=== PATIENT | female | born 1950 | race Caucasian/White ===

== ENCOUNTER → 2016-10-15 | Outpatient (CLI) | payer MEDICARE ==
--- NOTE | 2016-10-19 09:06 | MM ---
Reason for exam: screening (asymptomatic). Last mammogram was performed 1 year ago. History: Patient is postmenopausal and is nulliparous. Took estrogen for 5 years beginning at age 46. Took progesterone for 5 years beginning at age 46. Physical Findings: A clinical breast exam by your physician is recommended on an annual basis and results should be correlated with mammographic findings. MG 3D Screening Mammo W/Cad Bilateral CC and MLO view(s) were taken. Prior study comparison: October 09, 2015, bilateral MG 3d screening mammo w/cad. The breast tissue is heterogeneously dense. This may lower the sensitivity of mammography. Focal asymmetry in the left upper outer quadrant left MLO view, stable. No significant changes when compared with prior studies. ASSESSMENT: Benign, BI-RAD 2 RECOMMENDATION: Routine screening mammogram of both breasts in 1 year.
== END | disposition home or self-care (01) ==
LOC: RADMAMWWP 11:20
PROVIDERS: ATTEND Internal Medicine
DX: Z12.31 Encounter for screening mammogram for malignant neoplasm of breast (principal)
CPT/HCPCS: 77063; G0202

== ENCOUNTER → 2017-12-08 | Outpatient (CLI) | payer MEDICARE ==
--- NOTE | 2017-12-09 15:36 | MM ---
Reason for exam: screening (asymptomatic). Last mammogram was performed 1 year and 2 months ago. History: Patient is postmenopausal and is nulliparous. Took estrogen for 5 years beginning at age 46. Took progesterone for 5 years beginning at age 46. Physical Findings: A clinical breast exam by your physician is recommended on an annual basis and results should be correlated with mammographic findings. MG 3D Screening Mammo W/Cad Bilateral CC and MLO view(s) were taken. Prior study comparison: October 15, 2016, bilateral MG 3d screening mammo w/cad. October 09, 2015, bilateral MG 3d screening mammo w/cad. The breast tissue is heterogeneously dense. This may lower the sensitivity of mammography. Finding: There are typically benign dystrophic, round calcifications in both breasts. There is no discrete abnormality. ASSESSMENT: Benign, BI-RAD 2 RECOMMENDATION: Routine screening mammogram of both breasts in 1 year.
== END | disposition home or self-care (01) ==
LOC: RADMAMWWP 09:12
PROVIDERS: ATTEND Internal Medicine
DX: Z12.31 Encounter for screening mammogram for malignant neoplasm of breast (principal)
CPT/HCPCS: 77063; 77067

== ENCOUNTER 2018-05-04 07:00 | Day surgery (SDC) | payer MEDICARE ==
[2018-05-02 14:09] VITALS: BMI 24.2
[~2018-05-04 07:00] MED LIST: LACTATED RINGERS 1,000 ML IV SCH; LIDOCAINE 1% 20 ML VIAL (10MG/ML) FOR IV START INTRADERMA PRN
[2018-05-04 07:28] VITALS: TEMP 97.9
[2018-05-04 07:35] LABS: Glucose,Whole Blood 113 mg/dL (75-99)
[2018-05-04] MEDS ORDERED: PROPOFOL 10 MG/ML 20 ML VIAL IV ONE (07:59)
--- NOTE | 2018-05-04 08:21 | P.PCN ---
Date of Procedure: 05/04/18 Procedure(s) Performed: BRIEF HISTORY: Patient is a 67-year-old pleasant white female, scheduled for an elective colonoscopy as a part of screening for colorectal neoplasia. PROCEDURE PERFORMED: Colonoscopy. PREOPERATIVE DIAGNOSIS: Screening for colon cancer. IV sedation per Anesthesia. PROCEDURE: After informed consent was obtained, the patient, was brought into the endoscopy unit. IV sedation was administered by Anesthesia under continuous monitoring. Digital rectal examination was normal. Initially the Olympus CF- 160 flexible video colonoscope was then inserted in the rectum, gradually advanced into the cecum without any difficulty. Careful examination was performed as the scope was gradually being withdrawn. Ileocecal valve and the appendiceal orifice were visualized and appeared normal. Prep was excellent. Mucosa of the cecum, ascending colon, transverse colon, descending colon, sigmoid colon, and rectum appeared normal. Scattered sigmoid diverticulosis seen. Retroflexion was performed in the rectum and no lesions were seen. The patient tolerated the procedure well. IMPRESSION: Normal-appearing colon from rectum to cecum with no evidence of colorectal neoplasia. Scattered sigmoid diverticulosis. RECOMMENDATIONS: Findings of this examination were discussed with the patient as well as her family. She was advised to have a repeat screening colonoscopy in 10 years..
[2018-05-04] MEDS ORDERED: IV FLUID CONTINUATION 1,000 ML IV ONE (08:22)
[2018-05-04 08:55] VITALS: BP 160/67; PULSE 78; RESP 18
== END 2018-05-04 09:25 | disposition home or self-care (01) ==
LOC: ORWHC2ENDO 07:00
PROVIDERS: ATTEND Internal Medicine Gastroenterology
DX: Z12.11 Encounter for screening for malignant neoplasm of colon (principal); K57.30 Diverticulosis of large intestine without perforation or abscess without bleeding; I10 Essential (primary) hypertension; E78.5 Hyperlipidemia, unspecified; E11.9 Type 2 diabetes mellitus without complications; Z98.1 Arthrodesis status; Z79.84 Long term (current) use of oral hypoglycemic drugs; Z79.82 Long term (current) use of aspirin; Z79.899 Other long term (current) drug therapy
CPT/HCPCS: J2704; G0121

== ENCOUNTER → 2018-12-27 | Outpatient (CLI) | payer MEDICARE ==
--- NOTE | 2018-12-28 14:19 | MM ---
Reason for exam: screening (asymptomatic). Last mammogram was performed 1 year and 1 month ago. History: Patient is postmenopausal and is nulliparous. Took estrogen for 5 years beginning at age 46. Took progesterone for 5 years beginning at age 46. MG 3D Screening Mammo W/Cad Bilateral CC and MLO view(s) were taken. Prior study comparison: December 08, 2017, bilateral MG 3d screening mammo w/cad. October 15, 2016, bilateral MG 3d screening mammo w/cad. The breast tissue is heterogeneously dense. This may lower the sensitivity of mammography. There are benign-appearing calcifications in both breast. No suspicious abnormality. No significant new finding when compared with prior studies. ASSESSMENT: Benign, BI-RAD 2 RECOMMENDATION: Routine screening mammogram of both breasts in 1 year.
== END | disposition home or self-care (01) ==
LOC: RADMAMWWP 11:20
PROVIDERS: ATTEND Internal Medicine
DX: Z12.31 Encounter for screening mammogram for malignant neoplasm of breast (principal)
CPT/HCPCS: 77063; 77067

== ENCOUNTER → 2019-04-14 | Outpatient (CLI) | payer MEDICARE ==
--- NOTE | 2019-04-14 10:37 | XR ---
EXAMINATION TYPE: XR lumbosacral spine min 4V DATE OF EXAM: 04/14/2019 CLINICAL HISTORY: pain COMPARISON: NONE TECHNIQUE: Frontal, lateral, and oblique images of the lumbar spine are obtained. FINDINGS: There are 5 lumbar type vertebral bodies identified. The lumbar spine shows satisfactory alignment without evidence of acute fracture or dislocation. Vertebral body heights are within normal limits. Mild degenerative disc space narrowing L3-4 through L5-S1. Moderate facet joint arthropathy. IMPRESSION: No acute fracture or dislocation is seen in the lumbar spine.ICD 10 NO FRACTURE, INITIAL EVALUATION
== END | disposition home or self-care (01) ==
LOC: RADXRMAIN 09:39
PROVIDERS: ATTEND Internal Medicine
DX: M54.5 Low back pain (principal)
CPT/HCPCS: 72110

== ENCOUNTER → 2019-05-10 | Outpatient (CLI) | payer MEDICARE ==
--- NOTE | 2019-05-10 17:30 | MR ---
EXAMINATION TYPE: MR lumbar spine wo con DATE OF EXAM: 05/10/2019 COMPARISON: X-ray 04/14/2019 HISTORY: Low back pain TECHNIQUE: T1 and T2 axial and sagittal images of the lumbar spine are submitted. FINDINGS: There is no abnormal signal seen within the visualized spinal cord or paraspinal soft tissu es. At T12-L1 there is a chronic mild superior endplate compression fracture of T12. No disc herniation o r canal stenosis. No foraminal encroachment. Very minimal left paracentral disc bulging. Simple appea ring bilateral renal cysts are noted. At L1-2 there is no disc herniation or canal stenosis. No foraminal encroachment. At L2-3 there is no disc herniation or canal stenosis. Mild degenerative change. There is mild facet arthropathy. No foraminal encroachment. At L3-4 there is degenerative disc disease with circumferential disc bulging and hypertrophic change of the facets and ligamentum flavum. Mild bilateral foraminal encroachment. No Canal stenosis. At L4-5 there is degenerative disc disease with more advanced facet arthropathy. No focal herniation or canal stenosis. Mild circumferential disc bulging with mild bilateral foraminal encroachment. No n erve root contact. At L5-S1 there is degenerative disc disease with facet arthropathy. No canal stenosis, disc herniatio n or foraminal encroachment. IMPRESSION: 1. Multilevel mild degenerative disc disease with a chronic superior endplate compression fracture T1 2. 2. Multilevel disc bulging primarily at levels L2-3, L3-4 and L4-5 with no canal stenosis or nerve ro ot impingement. 3. Bilateral renal simple cysts
== END | disposition home or self-care (01) ==
LOC: RADMRIMAIN 16:18
PROVIDERS: ATTEND Internal Medicine
DX: M51.86 Other intervertebral disc disorders, lumbar region (principal); M51.36 Other intervertebral disc degeneration, lumbar region; S22.089A Unspecified fracture of T11-T12 vertebra, initial encounter for closed fracture
CPT/HCPCS: 72148

== ENCOUNTER → 2020-02-19 | Outpatient (CLI) | payer MEDICARE ==
--- NOTE | 2020-02-21 09:46 | MM ---
Reason for exam: screening (asymptomatic). Last mammogram was performed 1 year and 2 months ago. History: Patient is postmenopausal and is nulliparous. Took estrogen for 5 years beginning at age 46. Took progesterone for 5 years beginning at age 46. Physical Findings: A clinical breast exam by your physician is recommended on an annual basis and results should be correlated with mammographic findings. MG 3D Screening Mammo W/Cad Bilateral CC and MLO view(s) were taken. Prior study comparison: December 27, 2018, bilateral MG 3d screening mammo w/cad. December 08, 2017, bilateral MG 3d screening mammo w/cad. The breast tissue is heterogeneously dense. This may lower the sensitivity of mammography. No significant changes when compared with prior studies. ASSESSMENT: Benign, BI-RAD 2 RECOMMENDATION: Routine screening mammogram of both breasts in 1 year.
== END | disposition home or self-care (01) ==
LOC: RADMAMWWP 16:04
PROVIDERS: ATTEND Internal Medicine
DX: Z12.31 Encounter for screening mammogram for malignant neoplasm of breast (principal)
CPT/HCPCS: 77063; 77067

== ENCOUNTER → 2021-03-24 | Outpatient (CLI) | payer MEDICARE ==
--- NOTE | 2021-03-25 10:49 | MM ---
Reason for exam: screening (asymptomatic). Last mammogram was performed 1 year and 1 month ago. History: Patient is postmenopausal and is nulliparous. Took estrogen for 5 years beginning at age 46. Took progesterone for 5 years beginning at age 46. Physical Findings: A clinical breast exam by your physician is recommended on an annual basis and results should be correlated with mammographic findings. MG 3D Screening Mammo W/Cad Bilateral CC and MLO view(s) were taken. Prior study comparison: February 19, 2020, bilateral MG 3d screening mammo w/cad. December 27, 2018, bilateral MG 3d screening mammo w/cad. December 08, 2017, bilateral MG 3d screening mammo w/cad. The breast tissue is heterogeneously dense. This may lower the sensitivity of mammography. There are benign appearing round dystrophic calcifications bilaterally. There is no discrete abnormality. ASSESSMENT: Benign, BI-RAD 2 RECOMMENDATION: Routine screening mammogram of both breasts in 1 year.
== END | disposition home or self-care (01) ==
LOC: RADMAMWWP 13:42
PROVIDERS: ATTEND Family Medicine
DX: Z12.31 Encounter for screening mammogram for malignant neoplasm of breast (principal)
CPT/HCPCS: 77063; 77067

== ENCOUNTER → 2022-03-25 | Outpatient (CLI) | payer MEDICARE ==
--- NOTE | 2022-03-25 16:17 | BD ---
EXAMINATION TYPE: Axial Bone Density DATE OF EXAM: 03/25/2022 COMPARISON: NONE CLINICAL HISTORY: 71 years old Female. ICD-10 CODE: M81.0 Osteoporosis Height: 63.5 Weight: 143 FRAX RISK QUESTIONS: Alcohol (3 or more units per day): NO Family History (Parent hip fracture): NO Glucocorticoids (More than 3mos): NO (Ex: prednisone, prednisolone, methylprednisolone, dexamethasone, and hydrocortisone). History of Fracture in Adulthood: NO Secondary Osteoporosis: 1. Type 1 Diabetes: NO 2. Hyperthyroidism: NO 3. Menopause before 45: NO RISK FACTORS HISTORY OF: Family History of Osteoporosis: NO Active: YES Diet low in dairy products/other sources of calcium: NO Postmenopausal woman: YES Lost more than 2 inches in height since high school: YES MEDICATIONS: Additional Medications: YES METFORMIN Calcium ,VIT D EXAM MEASUREMENTS: Bone mineral densitometry was performed using the [employer] System. Bone mineral density as measured about the Lumbar spine is: ----- L1-L4(G/cm2): 0.956 T Score Values are as follows: ----- L1: -2.2 ----- L2: -2.7 ----- L3: -1.6 ----- L4: -1.4 ----- L1-L4: -1.9 Bone mineral density BASELINE Bone mineral density about the R hip (g/cm2): 0.688 Bone mineral density about the L hip (g/cm2): 0.626 T Score values are as follows: -----R Neck: -2.5 -----L Neck: -3.0 -----R Total: -2.4 -----L Total: -2.9 Bone mineral density BASELINE FRAX%s: The graph provided illustrates a 19.7% chance for a major osteoporotic fx and a 6.8% chance f or the hips probability for fx in 10 years time. IMPRESSION: Osteoporosis (T Score less than -2.5). There is increased fracture risk and therapy is usually indicated based on age. Re-Screen 1-2 years. NOTE: T-SCORE=SD OF THE YOUNG ADULT MEAN.
--- NOTE | 2022-03-26 19:13 | MM ---
Reason for Exam: Screening (asymptomatic). Last screening mammogram was performed 12 month(s) ago. Patient History: Menarche at age 12. Patient has no children. Postmenopausal. Estrogen, starting at age 46 for 5 years. Progesterone, starting at age 46 for 5 years. Risk Values: Kayla 5 year model risk: 1.9%. NCI Lifetime model risk: 5.4%. Prior Study Comparison: 12/27/2018 Bilateral Screening Mammogram, [facility]. 02/19/2020 Bilateral Screening Mammogram, [facility]. 03/24/2021 Bilateral Screening Mammogram, [facility]. Tissue Density: The breast tissue is heterogeneously dense. This may lower the sensitivity of mammography. Findings: Analyzed By CAD. No persisting abnormality on 3-D images. There is no suspicious group of microcalcifications or new suspicious mass in either breast. Overall Assessment: Benign, BI-RAD 2 Management: Screening Mammogram of both breasts in 1 year. 1. Patient should continue monthly self breast exams. 2. A clinical breast exam by your physician is recommended on an annual basis. 3. This exam should not preclude additional follow-up of suspicious palpable abnormalities. Electronically signed and approved by: Kam Webber M.D. Radiologist
== END | disposition home or self-care (01) ==
LOC: RADMAMWWP 10:52
PROVIDERS: ATTEND Family Medicine
DX: Z12.31 Encounter for screening mammogram for malignant neoplasm of breast (principal); M81.0 Age-related osteoporosis without current pathological fracture
CPT/HCPCS: 77063; 77067; 77080

== ENCOUNTER → 2022-05-05 | Outpatient (CLI) | payer MEDICARE ==
--- NOTE | 2022-05-05 09:20 | CT ---
EXAMINATION TYPE: CT facial bones wo con DATE OF EXAM: 05/05/2022 COMPARISON: None HISTORY: left sided jaw pain CT DLP: 625 mGycm Automated exposure control for dose reduction was used. TECHNIQUE: CT scan of the sinuses is performed without contrast, axial images are obtained, coronal r eformatted images are also reviewed. FINDINGS: The paranasal sinuses including the frontal, ethmoid, sphenoid, and maxillary sinuses bila terally are well-aerated without abnormal opacification. The ostiomeatal complex is patent bilateral ly on the coronal images. Nasal septal deviation noted. Visualized portion of mastoid air cells show no abnormal opacification. The globes are intact bilate rally. Postsurgical changes involving the cervical spine. Hypertrophic spurring C4-C5 with degenerat michel disc disease. Extensive dental artifact noted. Mandible intact. Mild TMJ arthropathy bilaterally IMPRESSION: 1. No evidence of sinusitis. 2. Mild bilateral TMJ arthropathy. Mandible intact.
== END | disposition home or self-care (01) ==
LOC: RADCTMAIN 08:15
PROVIDERS: ATTEND Family Medicine
DX: M26.653 Arthropathy of bilateral temporomandibular joint (principal); J32.0 Chronic maxillary sinusitis
CPT/HCPCS: 70486

== ENCOUNTER 2022-12-21 18:10 | Emergency (ER) | payer MEDICARE ==
--- NOTE | 2022-12-21 20:11 | ED ---
General Adult HPI - General Chief complaint: Eye Problems Stated complaint: eye problems Time Seen by Provider: 12/21/22 19:43 Source: patient, RN notes reviewed Mode of arrival: wheelchair Limitations: no limitations - History of Present Illness Initial comments: 72-year-old female with past medical history significant for right patellar surgery who presents the emergency department with a chief complaint of eye problem. Patient reports that she scratched her eye with her hand prior to arrival. She noticed a small amount of blood that has accumulated in her left eye. She reports that she is on enoxiparin injections. She called her PCP in reported his symptoms. They recommended she be evaluated in the emergency department. She denies any dizziness, lightheadedness and headache. Denies any known trauma or falls. - Related Data Home Medications Medication Instructions Recorded Confirmed Aspirin 81 mg PO DAILY 05/02/18 05/04/18 Biotin 10,000 mcg PO DAILY 05/02/18 05/04/18 Calcium Carbonate [Calcium] 1,200 mg PO DAILY 05/02/18 05/04/18 Citalopram Hydrobromide 20 mg PO QAM 05/02/18 05/04/18 [Citalopram HBr] Fish Oil/Dha/Epa [Fish Oil 1,200 2,400 mg PO DAILY 05/02/18 05/04/18 mg Fish Oil] Multivit-Min/Iron/Folic/Lutein 1 each PO DAILY 05/02/18 05/04/18 [Centrum Silver Women Tablet] Omeprazole [PriLOSEC] 20 mg PO QAM 05/02/18 05/04/18 Red Yeast Rice 1,200 mg PO DAILY 05/02/18 05/04/18 metFORMIN HCL 500 mg PO BID 05/02/18 05/04/18 ramipriL [Ramipril] 10 mg PO QAM 05/02/18 05/04/18 Allergies Allergy/AdvReac Type Severity Reaction Status Date / Time antibiotic from dental office AdvReac severe Uncoded 05/02/18 13:56 diarrhea Review of Systems ROS Statement: Those systems with pertinent positive or pertinent negative responses have been documented in the HPI. ROS Other: All systems not noted in ROS Statement are negative. Past Medical History Past Medical History: Diabetes Mellitus, GERD/Reflux, Hyperlipidemia, Hypertension Additional Past Medical History / Comment(s): cortisone injuection Feb 2018 History of Any Multi-Drug Resistant Organisms: None Reported Past Surgical History: Orthopedic Surgery Additional Past Surgical History / Comment(s): neck cervical fusion,eye procedure to correct eye lash Past Anesthesia/Blood Transfusion Reactions: No Reported Reaction Smoking Status: Never smoker Past Alcohol Use History: Rare Past Drug Use History: None Reported - Past Family History Mother Family Medical History: Cancer Additional Family Medical History / Comment(s): lymphoma General Exam - General Exam Comments Initial Comments: General: Alert, in no acute distress Head: atraumatic normocephalic. Eyes PERRL, EOMI intact, mucous membranes moist, left eye with some conjunctival hemorrhage in the medial corner pupils eq ual and reactive. Extraocular eye movements intact. Respiratory: Lungs clear to auscultation bilaterally Cardiovascular: Heart rate regular rate and rhythm Abdominal: Soft without guarding or rebound Extremities: Normal inspection with full range of motion and normal capillary refill Neuroogic: alert and oriented 3, CN II-XII intact, able to ambulate with steady gait Skin: warm dry and intact with normal color Visual acuity is 20/20 bilaterally Limitations: no limitations Course Vital Signs 12/21/22 12/21/22 18:15 20:35 Temperature 98.2 F 97.9 F Pulse Rate 78 70 Respiratory 18 16 Rate Blood Pressure 201/82 179/69 O2 Sat by Pulse 96 96 Oximetry Medical Decision Making - Medical Decision Making Was pt. sent in by a medical professional or institution (Dr. PA, COMMERCIAL LOAN SPECIALIST, urgent care, hospital, or halfway...) When possible be specific @ -[No] Did you speak to anyone other than the patient for history (EMS, parent, family, police, friend...)? What history was obtained from this source @ -[No] Did you review nursing and triage notes (agree or disagree)? Why? @ -[I reviewed and agree with nursing and triage notes] Were old charts reviewed (outside hosp., previous admission, EMS record, old EKG, old radiological studies, urgent care reports/EKG's, halfway records)? Report findings @ -[No old charts were reviewed] Differential Diagnosis (chest pain, altered mental status, abdominal pain women, abdominal pain men, vaginal bleeding, weakness, fever, dyspnea, syncope, headache, dizziness, GI bleed, back pain, seizure, CVA, palpatations, mental health, musculoskeletal)? @ -[not applicable] EKG interpreted by me (3pts min.). @ -[As above] X-rays interpreted by me (1pt min.). @ -[None done] CT interpreted by me (1pt min.). @ -[None done] U/S interpreted by me (1pt. min.). @ -[None done] What testing was considered but not performed or refused? (CT, X-rays, U/S, labs)? Why? @ -[None] What meds were considered but not given or refused? Why? @ -[None] Did you discuss the management of the patient with other professionals (professionals i.e. , PA, COMMERCIAL LOAN SPECIALIST, lab, RT, psych nurse, aids social worker, custodial aide, teacher, hotel security officer, protective services case worker)? Give summary @ -[No] Was smoking cessation discussed for >3mins.? @ -[No] Was critical care preformed (if so, how long)? @ -[No] Were there social determinants of health that impacted care today? How? (Homelessness, low income, unemployed, alcoholism, drug addiction, transportation, low edu. Level, literacy, decrease access to med. care, senior care, rehab)? @ -[No] Was there de-escalation of care discussed even if they declined (Discuss DNR or withdrawal of care, Hospice)? DNR status @ -[No] What co-morbidities impacted this encounter? (DM, HTN, Smoking, COPD, CAD, Cancer, CVA, ARF, Chemo, Hep., AIDS, mental health diagnosis, sleep apnea, morb id obesity)? @ -[None] Was patient admitted / discharged? Hospital course, mention meds given and route, prescriptions, significant lab abnormalities, going to OR and other pertinent info. @ -Discharged. This is a pleasant 72-year-old female who presents the emergency department with BiPAP. Patient thorough history and physical exam performed on the ED. Physical exam is essentially unremarkable left eye consistent with some conjunctival hemorrhage. Visual acuity is 20/20 in bilateral eyes. No focal new deficits noted exam. Pupils are equal and reactive. Patient is agreeable with the plan for discharge home at this time with recommended close follow-up with PCP in 1-2 days. Return precautions were discussed at length. Patient discharged in stable condition. Case discussed with EMELIA Tuttle who agrees with Undiagnosed new problem with uncertain prognosis? @ -[No] Drug Therapy requiring intensive monitoring for toxicity (Heparin, Nitro, Insulin, Cardizem)? @ -[No] Were any procedures done? @ -[No] Diagnosis/symptom? @ -Left Subconjunctival Hemorrhage Acute, or Chronic, or Acute on Chronic? @ -Acute Uncomplicated (without systemic symptoms) or Complicated (systemic symptoms)? @ -Uncomplicated Side effects of treatment? @ -[No] Exacerbation, Progression, or Severe Exacerbation? @ -[No] Poses a threat to life or bodily function? How? (Chest pain, [place], [place], pneumonia, PE, COPD, DKA, ARF, appy, cholecystitis, CVA, Diverticulitis, Homicidal, Suicidal, threat to staff... and all critical care pts) @ -Low likelihood Disposition Clinical Impression: Subconjunctival hemorrhage Disposition: HOME SELF-CARE Condition: Stable Instructions (If sedation given, give patient instructions): Subconjunctival Hemorrhage (ED) Additional Instructions: Please take medications as prescribed These return to the nearest emergency department if symptoms worsen or persist Is patient prescribed a controlled substance at d/c from ED?: No Referrals: Jaime Gabriel DO [Primary Care Provider] - 1-2 days Time of Disposition: 20:11
[2022-12-21 20:37] VITALS: BP 179/69; PULSE 70; RESP 16; TEMP 97.9
== END 2022-12-21 21:08 | disposition home or self-care (01) ==
LOC: EC 18:10
DX: H11.31 Conjunctival hemorrhage, right eye (principal); I10 Essential (primary) hypertension; E11.9 Type 2 diabetes mellitus without complications; E78.5 Hyperlipidemia, unspecified; K21.9 Gastro-esophageal reflux disease without esophagitis; Z79.82 Long term (current) use of aspirin; Z79.84 Long term (current) use of oral hypoglycemic drugs; Z79.899 Other long term (current) drug therapy; Z88.1 Allergy status to other antibiotic agents
CPT/HCPCS: 99283

== ENCOUNTER → 2023-04-06 | Outpatient (CLI) | payer MEDICARE ==
--- NOTE | 2023-04-07 23:34 | MM ---
Reason for Exam: Screening (asymptomatic). Last mammogram was performed 1 year(s) and 1 month(s) ago. Patient History: Menarche at age 12. Patient has no children. Postmenopausal. Estrogen, starting at age 46 for 5 years. Progesterone, starting at age 46 for 5 years. Risk Values: Kayla 5 year model risk: 2.0%. NCI Lifetime model risk: 5.1%. Prior Study Comparison: 02/19/2020 Bilateral Screening Mammogram, [facility]. 03/24/2021 Bilateral Screening Mammogram, [facility]. 03/25/2022 Bilateral MG 3D screening mammo w/cad, [facility]. Tissue Density: The breast tissue is heterogeneously dense. This may lower the sensitivity of mammography. Findings: Analyzed By CAD. Unchanged bilateral areas of asymmetric density. There is no suspicious group of microcalcifications or new suspicious mass in either breast. Overall Assessment: Benign, BI-RAD 2 Management: Screening Mammogram of both breasts in 1 year. . Patient should continue monthly self-breast exams. A clinical breast exam by your physician is recommended on an annual basis. This exam should not preclude additional follow-up of suspicious palpable abnormalities. Note on Kayla scores and lifetime risk: 1. A Kayla score greater than 3% is considered moderate risk. If this is the case, consider specialist referral to assess eligibility for a risk reducing agent. 2. If overall lifetime risk for the development of breast cancer is 20% or higher, the patient may qualify for future screening with alternating mammogram and breast MRI. Electronically signed and approved by: Kam Webber M.D. Radiologist
== END | disposition home or self-care (01) ==
LOC: RADMAMWWP 14:45
PROVIDERS: ATTEND Family Medicine
DX: Z12.31 Encounter for screening mammogram for malignant neoplasm of breast (principal); Z78.0 Asymptomatic menopausal state
CPT/HCPCS: 77063; 77067

== ENCOUNTER → 2024-04-07 | Outpatient (CLI) | payer MEDICARE ==
--- NOTE | 2024-04-14 12:18 | MM ---
Reason for Exam: Screening (asymptomatic). Last screening mammogram was performed 12 month(s) ago. Patient History: Menarche at age 12. Patient has no children. Postmenopausal. Estrogen, starting at age 46 for 5 years. Progesterone, starting at age 46 for 5 years. Risk Values: Kayla 5 year model risk: 2.0%. NCI Lifetime model risk: 4.8%. Prior Study Comparison: 10/15/2016 Bilateral Screening Mammogram, [facility]. 12/08/2017 Bilateral Screening Mammogram, [facility]. 12/27/2018 Bilateral Screening Mammogram, [facility]. 02/19/2020 Bilateral Screening Mammogram, [facility]. 03/24/2021 Bilateral Screening Mammogram, [facility]. 03/25/2022 Bilateral MG 3D screening mammo w/cad, [facility]. 04/06/2023 Bilateral MG 3D screening mammo w/cad, [facility]. Tissue Density: The breasts are heterogeneously dense, which may obscure small masses. Findings: Analyzed By CAD. Right breast biopsy clip. Right breast: There is no suspicious group of microcalcifications or new suspicious mass. Benign-appearing calcifications right breast. Left breast: There is no suspicious group of microcalcifications or new suspicious mass. Benign-appearing calcifications left breast. Overall Assessment: Benign, BI-RAD 2 Management: Screening Mammogram of both breasts in [address] [facility] will attempt to contact patient to return for supplemental views and ultrasound if indicated. Patient should continue monthly self-breast exams. A clinical breast exam by your physician is recommended on an annual basis. This exam should not preclude additional follow-up of suspicious palpable abnormalities. Note on Kayla scores and lifetime risk: 1. A Kayla score greater than 3% is considered moderate risk. If this is the case, consider specialist referral to assess eligibility for a risk reducing agent. 2. If overall lifetime risk for the development of breast cancer is 20% or higher, the patient may qualify for future screening with alternating mammogram and breast MRI. [facility], , 04/14/2024 12:15 PM. Electronically signed and approved by: Can Owen DO
== END | disposition home or self-care (01) ==
LOC: RADMAMWWP 13:38
PROVIDERS: ATTEND Family Medicine
DX: Z12.31 Encounter for screening mammogram for malignant neoplasm of breast (principal); R92.333 Mammographic heterogeneous density, bilateral breasts; Z78.0 Asymptomatic menopausal state
CPT/HCPCS: 77063; 77067